=== PATIENT | male | born 1945 | race Caucasian/White ===

== ENCOUNTER 2021-12-10 10:51 | Outpatient (CLI) | payer MEDICARE, BC, SELFPAY ==
--- NOTE | 2021-12-10 12:14 | W.ANESCHARGE ---
Anesthesia Charges Start Date/Time Anesthesia Start Date: 12/10/21 Anesthesia Start Time: 11:38 Stop Date/Time Anesthesia Stop Date: 12/10/21 Anesthesia Stop Time: 12:12 Summary Emergency: No Extremes of Age: Over [id number] [id number]
--- NOTE | 2021-12-10 12:56 | W.ANESCHARGE ---
Anesthesia Charges Start Date/Time Anesthesia Start Date: 12/10/21 Anesthesia Start Time: 11:38 Stop Date/Time Anesthesia Stop Date: 12/10/21 Anesthesia Stop Time: 12:12 Summary Emergency: No
== END 2021-12-10 10:52 | disposition home or self-care (01) ==
LOC: OP CLINIC 10:51
PROVIDERS: PCP Family Medicine; Visit Provider Surgery
DX: K57.30 Diverticulosis of large intestine without perforation or abscess without bleeding (principal); Z09 Encounter for follow-up examination after completed treatment for conditions other than malignant neoplasm; Z98.0 Intestinal bypass and anastomosis status
CPT/HCPCS: 45385; 811; 88305; 99100; J2704

== ENCOUNTER 2022-11-18 09:54 | Outpatient (CLI) | payer MEDICARE, BC, SELFPAY | END 2022-11-18 09:55 | disposition home or self-care (01) | PROVIDERS: PCP Family Medicine; Visit Provider Family Medicine | DX: Z00.00 Encounter for general adult medical examination without abnormal findings (principal); E78.2 Mixed hyperlipidemia; I11.0 Hypertensive heart disease with heart failure; M10.9 Gout, unspecified; Z13.9 Encounter for screening, unspecified | CPT/HCPCS: 80048; 80061; 84550; 85025 ==

== ENCOUNTER 2023-07-11 14:31 | Outpatient (CLI) | payer MEDICARE, BC, SELFPAY ==
--- NOTE | 2023-07-11 14:45 | CRLHL7_ITS ---
For Patients: As a result of the Century Cures Act, medical imaging exams and procedure reports are released immediately into your electronic medical record. You may view this report before your referring provider. If you have questions, please contact your health care provider. Indication: Lumbar radiculopathy. Technique: Multisequence multiplanar MRI of the lumbar spine without contrast. Comparison: Correlated with lumbar spine radiographs dated 07/07/2023. Findings: Normal vertebral alignment, stature, and intrinsic marrow signal intensity. Multilevel disc desiccation and height loss most pronounced at L5-S1. The conus medullaris terminates normally at the L1-2 level. Multiple well-circumscribed renal parenchymal hyperintensities likely represent cysts. Evaluation of the individual levels demonstrates: T12-L1: No significant spinal canal or neural foraminal stenosis. L1-L2: Shallow symmetric disc bulge. Mild facet joint hypertrophy. No significant spinal canal or neural foraminal stenosis. L2-L3: Show a symmetric disc bulge. Mild facet joint hypertrophy. No significant spinal canal or neural foraminal stenosis. L3-L4: Symmetric disc bulge. Mild facet joint hypertrophy. No significant spinal canal or neural foraminal stenosis. L4-L5: Mild narrowing of the lateral recesses and mild bilateral neural foraminal narrowing resulting from facet joint hypertrophy and symmetric disc bulging. L5-S1: No significant spinal canal stenosis. Mild left and moderate right neural foraminal narrowing resulting from symmetric disc bulging and facet joint hypertrophy. Impression: 1. Normal alignment with multilevel intervertebral disc height loss most pronounced at L5-S1. 2. At L4-L5, mild narrowing of the lateral recesses and bilateral neural foramina. 3. At L5-S1, moderate right neural foraminal narrowing with questionable impingement of the exiting nerve root. Dictated by Shorty Elkins MD @ 07/12/2023 10:47:40 AM (Electronically Signed)
== END 2023-07-11 14:32 | disposition home or self-care (01) ==
LOC: MRI 14:32
PROVIDERS: PCP Family Medicine; Visit Provider Family Medicine
DX: M54.16 Radiculopathy, lumbar region (principal); M51.26 Other intervertebral disc displacement, lumbar region; M51.27 Other intervertebral disc displacement, lumbosacral region
CPT/HCPCS: 72148

== ENCOUNTER 2023-08-11 10:09 | Outpatient (CLI) | payer MEDICARE, BC, SELFPAY | END 2023-08-11 10:10 | disposition home or self-care (01) | LOC: FBOREF 10:09 | PROVIDERS: PCP Family Medicine; Visit Provider Family Medicine | DX: I10 Essential (primary) hypertension (principal) | CPT/HCPCS: 80048 ==

== ENCOUNTER 2023-09-02 15:18 | Outpatient (CLI) | payer MEDICARE, BC, SELFPAY | END 2023-09-02 15:19 | disposition home or self-care (01) | PROVIDERS: PCP Family Medicine; Visit Provider Family Medicine | DX: E11.9 Type 2 diabetes mellitus without complications (principal); I10 Essential (primary) hypertension; G47.62 Sleep related leg cramps | CPT/HCPCS: 80048; 83735 ==

== ENCOUNTER 2023-10-25 12:07 | Outpatient (CLI) | payer MEDICARE, BC, SELFPAY | END 2023-10-25 12:08 | disposition home or self-care (01) | LOC: AMB 10-29 05:13 | PROVIDERS: PCP Family Medicine; Visit Provider Student in an Organized Health Care Education/Training Program | DX: I95.9 Hypotension, unspecified (principal); R53.1 Weakness; R42 Dizziness and giddiness; K92.1 Melena | CPT/HCPCS: A0425; A0427 ==

== ENCOUNTER 2023-10-25 12:47 | Observation (INO) | payer MEDICARE, BC, SELFPAY ==
[2023-10-25] VITALS (13 sets, daily range): BP systolic 84–144; BP diastolic 57–90; PULSE 62–85; RESP 16–18; TEMP 36.3–36.4; O2SAT 92–100; BMI 30.1
--- NOTE | 2023-10-25 13:14 | ED_ITS ---
HPI - General Adult General Date Seen: 10/25/23 Chief complaint: Dizziness/Vertigo Stated complaint: low back pain,low blood pressure Time Seen by Provider: 10/25/23 12:55 Source: patient, RN notes reviewed, old records reviewed and other Mode of arrival: ambulatory Limitations: no limitations History of Present Illness HPI narrative: Patient is an 77-year-old sent here by EMS from urgent care for evaluation of dizziness. He notes a several month history, approximately 5 months, of low back pain when he is up and walking around as well as dizziness with standing. Starting yesterday, he says the dizziness has been worse, it does not seem to get better when he walks around for a little bit. He also notes to dark black stools since yesterday. He has not had significant abdominal pain recently, did have trouble after starting metformin with abdominal pain and discontinue that. He continues to complain of back pain when he is up and ambulatory but does not have any back pain when he is lying down. He has no chest pain or shortness of breath. He has felt lightheaded, says he was near syncopal yesterday. Related Data Home Medications Medication Instructions Recorded Confirmed nitroglycerin 0.4 mg sublingual 0.4 mg sublingual Q5M PRN 05/27/22 10/25/23 tablet gabapentin 300 mg capsule 300 mg PO DAILY 10/11/23 10/25/23 allopurinol 300 mg tablet 300 mg PO DAILY 10/25/23 10/25/23 amlodipine 5 mg tablet 5 mg PO DAILY 10/25/23 10/25/23 losartan 100 1 tab PO DAILY 10/25/23 10/25/23 mg-hydrochlorothiazide 25 mg tablet mirtazapine 30 mg tablet 30 mg PO HS 10/25/23 10/25/23 naproxen 500 mg tablet 500 mg PO BID PRN 10/25/23 10/25/23 Previous Rx's Medication Instructions Recorded zolpidem 10 mg tablet 10 mg PO QHS PRN insomnia #90 tabs 05/25/23 glimepiride 2 mg tablet 2 mg PO QAM #30 tabs 10/12/23 Test Strips #1 ea 10/17/23 blood-glucose meter #1 ea 10/17/23 lancets #100 ea 10/17/23 Allergies Allergy/AdvReac Type Severity Reaction Status Date / Time atorvastatin Allergy Intermediate Aches and Verified 10/25/23 15:15 pains lisinopril Allergy Intermediate Cough Verified 10/25/23 15:15 Review of Systems Status of ROS: Reports: 10 or more systems reviewed and unremarkable except as noted in History and below [facility] Medical History (Updated 10/25/23 @ 18:28 by Katerina Walters MD) Gout (11/22/11) ?M10.9 - Gout, unspecified (ICD-10) Generalized anxiety disorder ?F41.1 - Generalized anxiety disorder (ICD-10) Tubular adenoma of colon ?D12.6 - Benign neoplasm of colon, unspecified (ICD-10) Type 2 diabetes mellitus, without long-term current use of insulin ?E11.9 - Type 2 diabetes mellitus without complications (ICD-10) Insomnia ?G47.00 - Insomnia, unspecified (ICD-10) Mixed hyperlipidemia ?E78.2 - Mixed hyperlipidemia (ICD-10) Primary hypertension ?I10 - Essential (primary) hypertension (ICD-10) RLS (restless legs syndrome) ?G25.81 - Restless legs syndrome (ICD-10) History of renal calculi (2015) ?Z87.442 - Personal history of urinary calculi (ICD-10) History of myocardial infarction (1992) ?I25.2 - Old myocardial infarction (ICD-10) History of depression ?Z86.59 - Personal history of other mental and behavioral disorders (ICD-10) Surgical History History of right hemicolectomy ?Z90.49 - Acquired absence of other specified parts of digestive tract (ICD- 10) Status post appendectomy ?Z90.49 - Acquired absence of other specified parts of digestive tract (ICD- 10) History of tonsillectomy ?Z90.89 - Acquired absence of other organs (ICD-10) History of left inguinal hernia repair (04/16/97) ?Z98.890 - Other specified postprocedural states (ICD-10) ?Z87.19 - Personal history of other diseases of the digestive system (ICD-10) History of cholecystectomy (2011) ?Z90.49 - Acquired absence of other specified parts of digestive tract (ICD- 10) History of basal cell carcinoma (BCC) excision (05/2019) ?Z98.890 - Other specified postprocedural states (ICD-10) ?Z85.828 - Personal history of other malignant neoplasm of skin (ICD-10) Family History Son Testicular cancer Family/Other Type 1 diabetes mellitus Family/Other Type 1 diabetes mellitus Other Lung cancer Social History Narrative: , 4 kids, retired Non-smoker Social EtOH What is your current living situation?: I presently have a place to live Problems where you live: no known problems In the past 12 months, utilities in danger of being shut off: no In past 12 months, lack of transportation kept you from medical appts, meetings, work, or getting things needed for daily living: no In the past 12 mos, have been you worried that your food would run out before you had money to buy more?: never true In the past 12 mos, the food you bought just didn't last and you didn't have money to buy more?: never true Smoking Status: Never smoker How often do you have a drink containing alcohol: never How often do you have six or more drinks on one occasion: Never AUDIT-C Alcohol total score: 0 Non-prescribed substance use: denies use How often does anyone, including family, friends and others, physically hurt you : never How often does anyone, including family, friends and others, insult or talk down to you: never How often does anyone, including family, friends and others, threaten you with harm: never How often does anyone, including family, friends and others, scream or curse at you: never Little interest or pleasure in doing things: more than half the days Feeling down, depressed, or hopeless: more than half the days service: No Exam Narrative: Exam Narrative: Vital signs as noted above. In general, an alert, well-appearing patient. Head: Normocephalic, atraumatic. Eyes: Pupils are equal reactive. Extraocular movements are full. Conjunctivae are normal. ENT: Mucous membranes are moist. Throat is normal. Neck: Supple without lymphadenopathy. Heart: Regular rate and rhythm. No murmur or rub. Lungs: Clear bilaterally. No increased work of breathing, crackles or wheezes. Abdomen: Soft and nontender. No organomegaly. Rectal: Melanotic stool, nontender prostate, no obvious masses. Extremities: Well perfused. No edema. No calf tenderness. Pulses intact. Neurologic: Patient is alert and oriented to person and place. Speech is fluent. Face is symmetric. Moves all extremities equally. Affect: Normal. Skin: Warm and dry. Well perfused. Const: Vital Signs, click to edit/add: Vital Signs - 24 hr 10/25/23 12:53 10/25/23 12:57 10/25/23 13:01 Temperature 97.4 F L Pulse Rate 69 Pulse Rate [Pulse Oximeter] 67 Pulse Rate [orthos tatic lying] Pulse Rate [orthos tatic sitting] Pulse Rate [orthos tatic standing] Respiratory Rate 16 Blood Pressure 98/66 Blood Pressure [Ri ght Upper Arm] 114/80 Blood Pressure [or thostatic lying] Blood Pressure [or thostatic sitting] Blood Pressure [or thostatic standing ] Pulse Oximetry 96 95 [facility] 10/25/23 13:02 10/25/23 13:15 10/25/23 13:30 Temperature Pulse Rate 73 72 78 Pulse Rate [Pulse Oximeter] Pulse Rate [orthos tatic lying] Pulse Rate [orthos tatic sitting] Pulse Rate [orthos tatic standing] Respiratory Rate Blood Pressure Blood Pressure [Ri ght Upper Arm] Blood Pressure [or thostatic lying] Blood Pressure [or thostatic sitting] Blood Pressure [or thostatic standing ] Pulse Oximetry 93 94 96 [facility] 10/25/23 13:31 10/25/23 13:45 10/25/23 14:00 Temperature Pulse Rate 74 76 62 Pulse Rate [Pulse Oximeter] Pulse Rate [orthos tatic lying] Pulse Rate [orthos tatic sitting] Pulse Rate [orthos tatic standing] Respiratory Rate Blood Pressure 92/57 L Blood Pressure [Ri ght Upper Arm] Blood Pressure [or thostatic lying] Blood Pressure [or thostatic sitting] Blood Pressure [or thostatic standing ] Pulse Oximetry 96 99 98 [facility] 10/25/23 14:01 10/25/23 14:37 Temperature Pulse Rate 62 Pulse Rate [Pulse Oximeter] Pulse Rate [orthos tatic lying] 65 Pulse Rate [orthos tatic sitting] 81 Pulse Rate [orthos tatic standing] 85 Respiratory Rate Blood Pressure 84/61 L Blood Pressure [Ri t Upper Arm] Blood Pressure [or thostatic lying] 113/73 Blood Pressure [or thostatic sitting] 95/73 Blood Pressure [or thostatic standing ] 93/75 Pulse Oximetry 97 Oxygen Delivery Me thod Course Course ED Course: Patient had an IV established by paramedics, I gave him a total of a L of normal saline. His blood pressures did remain in the 80s to 90s, but looking through his records it looks like his blood pressures have been running low recently. He still is on 2 blood pressure medications. His stools clearly melanotic, I think GI blood loss is contributing to his dizziness. With regard to his back pain, this is chronic over the past number of months and unchanged. He does not have any back pain right now. I did look at his aorta with the ultrasound and did hear normal caliber. I am not concerned about aortic pathology. A type and screen was ordered. His hemoglobin came back at 10, recheck in 2 hours it was 9.3 after your saline. White count was normal at 7, platelets. Venous gas was unremarkable, metabolic panel was normal. Patient is not anticoagulated. BUN was elevated at 65, creatinine was 1.8. This may be a combination some prerenal azotemia, BUN may be elevated because of GI blood loss as well. Lactate was normal at 1.9, liver function panel is normal, troponin less than 0.1. BNP 32. TSH was normal 3.5. UA was negative. Fecal occult blood was positive. He went on to have CT scan of the abdomen, GI bleed protocol, this is read by radiology as follows:FINDINGS: ABDOMEN Liver: Normal hepatic attenuation. No suspicious focal hepatic lesion. No significant intrahepatic biliary ductal dilatation. Mild intrahepatic biliary ductal prominence is consistent with a reservoir effect status post cholecystectomy. Patent portal and hepatic veins. Gallbladder: Cholecystectomy. Normal common duct caliber. Pancreas: Diffuse fatty infiltration of the pancreas. No focal lesion. Normal duct caliber. No peripancreatic inflammatory changes. Spleen: Normal splenic attenuation. No suspicious focal lesion. Patent splenic artery and vein. Adrenal Glands: Symmetrical adrenal glands. No focal lesion of significance. Kidneys: 6 mm (series 12; image 93) distal right ureteral stone very close to the ureterovesical junction without significant upstream dilatation of the right upper urinary tract. 10 mm nonobstructing stone in the left renal pelvis. Multiple additional nonobstructing intrarenal collecting system stones. Bilateral uncomplicated renal cortical cysts. No suspicious focal lesion. Gastrointestinal tract: Postsurgical changes involving the distal ileum and proximal right colon (ileocolic anastomosis). Nondilated bowel. Extensive diverticulosis of the descending and sigmoid colon without associated infla mmatory changes. Normal mesentery. Vascular: Moderate aortoiliac atherosclerotic mural calcification. Abdominal aorta and its major proximal branches including the celiac, superior mesenteric, inferior mesenteric, renal, and bilateral common iliac arteries are patent. Accessory left lower pole renal artery. Inferior vena cava, portal and superior mesenteric veins are patent. Additional findings: No incidental adenopathy. No significant ascites, free fluid or pneumoperitoneum. PELVIS No bladder lesion is identified. No significant incidental findings related to the prostate and seminal vesicles. No abnormal free fluid. No incidental adenopathy. SKELETON AND BODY WALL No acute or suspicious incidental findings. Multilevel thoracolumbar spondylosis. 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 LOWER THORAX Severe multivessel atherosclerotic coronary artery calcification. Partially included lower thoracic wall, lungs, pleural spaces and mediastinum are otherwise without significant incidental findings. IMPRESSION: 1. No imaging findings to explain melena. No evidence of active extravasation. CT is insensitive for detection of mucosal lesions of the gastrointestinal tract. Consider Gastroenterology consultation for further evaluation (endoscopy). 2. Extensive diverticulosis of the descending and sigmoid colon without evidence of acute diverticulitis. 3. Ileocolic anastomosis. 4. Urolithiasis described above including a 6 mm distal right ureteral stone located close to the ureterovesical junction without significant upstream dilatation of the right upper urinary tract. 5. Incidental findings described in the body of the report. I have discussed all this with the patient. Interestingly, he does have a right ureteral stone, unclear how long this is been there and there is not significant hydronephrosis but I do wonder whether this has contributed to his back pain. This will need to be addressed but I think the more pressing issue is the GI bleed. He will be admitted to the hospital for further evaluation and observation. He received Protonix here in the ER. Vital Signs Vital signs: Initial Vital Signs Temperature 97.4 F L 10/25/23 12:53 Temperature Source Temporal Artery Scan 10/25/23 12:53 Pulse Rate 67 10/25/23 12:53 Respiratory Rate 16 10/25/23 12:53 Blood Pressure 114/80 10/25/23 12:53 Blood Pressure Mean 91 10/25/23 12:53 Blood Pressure Position Supine 10/25/23 12:53 Pulse Oximetry 96 10/25/23 12:53 Oxygen Delivery Method Room Air 10/25/23 12:53 Vital Signs Temperature 97.4 F L 10/25/23 12:53 Pulse Rate 67 10/25/23 12:53 Respiratory Rate 16 10/25/23 12:53 Blood Pressure 114/80 10/25/23 12:53 Pulse Oximetry 96 10/25/23 12:53 Oxygen Delivery Method Room Air 10/25/23 12:53 Temperature 97.4 F L 10/25/23 12:53 Pulse Rate 65 10/25/23 14:37 Respiratory Rate 16 10/25/23 17:52 Blood Pressure 113/73 10/25/23 14:37 Pulse Oximetry 98 10/25/23 17:52 Oxygen Delivery Method Room Air 10/25/23 17:52 Medications Administered Medications: Discontinued Medications Generic Name Dose Route Start Last Admin Trade Name Freq PRN Reason Stop Dose Admin Sodium Chloride 1,000 mls @ 1,000 mls/hr 10/25/23 13:00 10/25/23 14:13 0.9 % Sodium Chloride 1000 Ml IV 10/25/23 13:59 Infused .Q1H TIMOTEO Infusion Pantoprazole Sodium 40 mg 10/25/23 14:38 10/25/23 14:54 Pantoprazole Sodium 40 Mg Inj IVP 10/25/23 14:39 40 mg ONCE ONE Administration Medical Decision Making Lab Data Labs: Lab Results 10/25/23 10/25/23 10/25/23 Range/Units 13:08 13:08 13:08 WBC 7.02 (4.50-11.00) K/uL RBC 3.23 L (4.30-5.90) m/uL Hgb 10.0 L (13.5-17.5) gm/dL Hct 31.4 L (37.0-53.0) % MCV 97 (80-100) fL MCH 31 (26-34) pg MCHC 32 (32-36) gm/dL RDW Coeff of [place] 14.2 (11.5-15.5) % Plt Count 210 (140-440) K/uL Neut % (Auto) 74.7 H (42.0-72.0) % Lymph % (Auto) 13.0 L (20-44) % [place] % (Auto) 8.8 (0.0-11.0) % Eos % (Auto) 2.3 (0.0-7.0) % Baso % (Auto) 0.6 (0.0-3.0) % Neut # (Auto) 5.20 (1.7-7.0) K/uL Lymph # (Auto) 0.90 (0.90-2.90) K/uL [place] # (Auto) 0.60 (0.00-0.90) K/UL Eos # (Auto) 0.16 (0.00-0.50) K/uL Baso # (Auto) 0.04 (0.00-0.30) K/uL Abs Immat Gran (auto) 0.04 (0.00-0.30) K/uL Imm/Tot Granulo (auto) 0.6 % VBG pH 7.368 (7.32-7.43) VBG pCO2 45 (40-50) mmHG VBG pO2 < 30.1 (25-47) mmHG VBG HCO3 26 (21-28) mmol/L Sodium Cancelled 136 Potassium Cancelled 3.6 Chloride Cancelled Carbon Dioxide Anion Gap BUN Creatinine Estimated Creat Clear Estimated GFR Glucose Lactate (0.5-1.9) mmol/L Calcium Magnesium (1.5-2.6) mg/dL Total Bilirubin (0.1-1.5) mg/dL Direct Bilirubin (0.0-0.5) mg/dL AST (12-35) U/L ALT (4-50) U/L Alkaline Phosphatase (40-150) U/L Troponin I (0.01-0.04) ng/mL NT-Pro-B Natriuret Pep pg/mL Total Protein (6.0-8.3) g/dL Albumin (3.3-5.0) g/dL TSH (0.270-4.200) uIU/mL Urine Color (Yellow) Urine Appearance (Clear) Urine pH (5.0-8.5) Ur Specific [place] (1.000-1.030) Urine Protein (Negative) Urine Glucose (UA) (Negative) Urine Ketones (Negative) Urine Blood (Negative) Urine Nitrite (Negative) Urine Bilirubin (Negative) Urine Urobilinogen (0.2-1.0) Ur Leukocyte Esterase (Negative) Urine RBC (0-2) Urine WBC (0-5) Ur Squamous Epith Cells (None-Few) Urine Bacteria (None) Stool Occult Blood (Negative) Blood Type Antibody Screen 10/25/23 10/25/23 10/25/23 Range/Units 13:08 13:08 13:08 WBC (4.50-11.00) K/uL RBC (4.30-5.90) m/uL Hgb (13.5-17.5) gm/dL Hct (37.0-53.0) % MCV (80-100) fL MCH (26-34) pg MCHC (32-36) gm/dL RDW Coeff of Denia (11.5-15.5) % Plt Count (140-440) K/uL Neut % (Auto) (42.0-72.0) % Lymph % (Auto) (20-44) % [place] % (Auto) (0.0-11.0) % Eos % (Auto) (0.0-7.0) % Baso % (Auto) (0.0-3.0) % Neut # (Auto) (1.7-7.0) K/uL Lymph # (Auto) (0.90-2.90) K/uL [place] # (Auto) (0.00-0.90) K/UL Eos # (Auto) (0.00-0.50) K/uL Baso # (Auto) (0.00-0.30) K/uL Abs Immat Gran (auto) (0.00-0.30) K/uL Imm/Tot Granulo (auto) % VBG pH (7.32-7.43) VBG pCO2 (40-50) mmHG VBG pO2 (25-47) mmHG VBG HCO3 (21-28) mmol/L Sodium Potassium Chloride 103 Carbon Dioxide Cancelled 24 Anion Gap Cancelled 9 BUN Cancelled Creatinine Estimated Creat Clear Estimated GFR Glucose Lactate (0.5-1.9) mmol/L Calcium Magnesium (1.5-2.6) mg/dL Total Bilirubin (0.1-1.5) mg/dL Direct Bilirubin (0.0-0.5) mg/dL AST (12-35) U/L ALT (4-50) U/L Alkaline Phosphatase (40-150) U/L Troponin I (0.01-0.04) ng/mL NT-Pro-B Natriuret Pep pg/mL Total Protein (6.0-8.3) g/dL Albumin (3.3-5.0) g/dL TSH (0.270-4.200) uIU/mL Urine Color (Yellow) Urine Appearance (Clear) Urine pH (5.0-8.5) Ur Specific [place] (1.000-1.030) Urine Protein (Negative) Urine Glucose (UA) (Negative) Urine Ketones (Negative) Urine Blood (Negative) Urine Nitrite (Negative) Urine Bilirubin (Negative) Urine Urobilinogen (0.2-1.0) Ur Leukocyte Esterase (Negative) Urine RBC (0-2) Urine WBC (0-5) Ur Squamous Epith Cells (None-Few) Urine Bacteria (None) Stool Occult Blood (Negative) Blood Type Antibody Screen 10/25/23 10/25/23 10/25/23 Range/Units 13:08 13:08 13:08 WBC (4.50-11.00) K/uL RBC (4.30-5.90) m/uL Hgb (13.5-17.5) gm/dL Hct (37.0-53.0) % MCV (80-100) fL MCH (26-34) pg MCHC (32-36) gm/dL RDW Coeff of Denia (11.5-15.5) % Plt Count (140-440) K/uL Neut % (Auto) (42.0-72.0) % Lymph % (Auto) (20-44) % [place] % (Auto) (0.0-11.0) % Eos % (Auto) (0.0-7.0) % Baso % (Auto) (0.0-3.0) % Neut # (Auto) (1.7-7.0) K/uL Lymph # (Auto) (0.90-2.90) K/uL [place] # (Auto) (0.00-0.90) K/UL Eos # (Auto) (0.00-0.50) K/uL Baso # (Auto) (0.00-0.30) K/uL Abs Immat Gran (auto) (0.00-0.30) K/uL Imm/Tot Granulo (auto) % VBG pH (7.32-7.43) VBG pCO2 (40-50) mmHG VBG pO2 (25-47) mmHG VBG HCO3 (21-28) mmol/L Sodium Potassium Chloride Carbon Dioxide Anion Gap BUN 65 H Creatinine Cancelled 1.8 H Estimated Creat Clear Cancelled Estimated GFR Cancelled 38 Glucose Cancelled Lactate (0.5-1.9) mmol/L Calcium Magnesium (1.5-2.6) mg/dL Total Bilirubin (0.1-1.5) mg/dL Direct Bilirubin (0.0-0.5) mg/dL AST (12-35) U/L ALT (4-50) U/L Alkaline Phosphatase (40-150) U/L Troponin I (0.01-0.04) ng/mL NT-Pro-B Natriuret Pep pg/mL Total Protein (6.0-8.3) g/dL Albumin (3.3-5.0) g/dL TSH (0.270-4.200) uIU/mL Urine Color (Yellow) Urine Appearance (Clear) Urine pH (5.0-8.5) Ur Specific [place] (1.000-1.030) Urine Protein (Negative) Urine Glucose (UA) (Negative) Urine Ketones (Negative) Urine Blood (Negative) Urine Nitrite (Negative) Urine Bilirubin (Negative) Urine Urobilinogen (0.2-1.0) Ur Leukocyte Esterase (Negative) Urine RBC (0-2) Urine WBC (0-5) Ur Squamous Epith Cells (None-Few) Urine Bacteria (None) Stool Occult Blood (Negative) Blood Type Antibody Screen 10/25/23 10/25/23 10/25/23 Range/Units 13:08 13:08 13:12 WBC (4.50-11.00) K/uL RBC (4.30-5.90) m/uL Hgb (13.5-17.5) gm/dL Hct (37.0-53.0) % MCV (80-100) fL MCH (26-34) pg MCHC (32-36) gm/dL RDW Coeff of Denia (11.5-15.5) % Plt Count (140-440) K/uL Neut % (Auto) (42.0-72.0) % Lymph % (Auto) (20-44) % [place] % (Auto) (0.0-11.0) % Eos % (Auto) (0.0-7.0) % Baso % (Auto) (0.0-3.0) % Neut # (Auto) (1.7-7.0) K/uL Lymph # (Auto) (0.90-2.90) K/uL [place] # (Auto) (0.00-0.90) K/UL Eos # (Auto) (0.00-0.50) K/uL Baso # (Auto) (0.00-0.30) K/uL Abs Immat Gran (auto) (0.00-0.30) K/uL Imm/Tot Granulo (auto) % VBG pH (7.32-7.43) VBG pCO2 (40-50) mmHG VBG pO2 (25-47) mmHG VBG HCO3 (21-28) mmol/L Sodium Potassium Chloride Carbon Dioxide Anion Gap BUN Creatinine Estimated Creat Clear Estimated GFR Glucose 165 H Lactate 1.9 (0.5-1.9) mmol/L Calcium Cancelled 9.9 Magnesium 1.7 (1.5-2.6) mg/dL Total Bilirubin 0.8 (0.1-1.5) mg/dL Direct Bilirubin 0.4 (0.0-0.5) mg/dL AST 23 (12-35) U/L ALT 27 (4-50) U/L Alkaline Phosphatase 63 (40-150) U/L Troponin I (0.01-0.04) ng/mL NT-Pro-B Natriuret Pep 32 pg/mL Total Protein 6.9 (6.0-8.3) g/dL Albumin 4.0 (3.3-5.0) g/dL TSH 3.470 (0.270-4.200) uIU/mL Urine Color (Yellow) Urine Appearance (Clear) Urine pH (5.0-8.5) Ur Specific [place] (1.000-1.030) Urine Protein (Negative) Urine Glucose (UA) (Negative) Urine Ketones (Negative) Urine Blood (Negative) Urine Nitrite (Negative) Urine Bilirubin (Negative) Urine Urobilinogen (0.2-1.0) Ur Leukocyte Esterase (Negative) Urine RBC (0-2) Urine WBC (0-5) Ur Squamous Epith Cells (None-Few) Urine Bacteria (None) Stool Occult Blood Positive (Negative) Blood Type Antibody Screen 10/25/23 10/25/23 10/25/23 Range/Units 13:21 15:23 15:45 WBC (4.50-11.00) K/uL RBC (4.30-5.90) m/uL Hgb 9.3 L (13.5-17.5) gm/dL Hct (37.0-53.0) % MCV (80-100) fL MCH (26-34) pg MCHC (32-36) gm/dL RDW Coeff of Denia (11.5-15.5) % Plt Count (140-440) K/uL Neut % (Auto) (42.0-72.0) % Lymph % (Auto) (20-44) % [place] % (Auto) (0.0-11.0) % Eos % (Auto) (0.0-7.0) % Baso % (Auto) (0.0-3.0) % Neut # (Auto) (1.7-7.0) K/uL Lymph # (Auto) (0.90-2.90) K/uL [place] # (Auto) (0.00-0.90) K/UL Eos # (Auto) (0.00-0.50) K/uL Baso # (Auto) (0.00-0.30) K/uL Abs Immat Gran (auto) (0.00-0.30) K/uL Imm/Tot Granulo (auto) % VBG pH (7.32-7.43) VBG pCO2 (40-50) mmHG VBG pO2 (25-47) mmHG VBG HCO3 (21-28) mmol/L Sodium Potassium Chloride Carbon Dioxide Anion Gap BUN Creatinine Estimated Creat Clear Estimated GFR Glucose Lactate (0.5-1.9) mmol/L Calcium Magnesium (1.5-2.6) mg/dL Total Bilirubin (0.1-1.5) mg/dL Direct Bilirubin (0.0-0.5) mg/dL AST (12-35) U/L ALT (4-50) U/L Alkaline Phosphatase (40-150) U/L Troponin I < 0.01 L (0.01-0.04) ng/mL NT-Pro-B Natriuret Pep pg/mL Total Protein (6.0-8.3) g/dL Albumin (3.3-5.0) g/dL TSH (0.270-4.200) uIU/mL Urine Color Yellow (Yellow) Urine Appearance Clear (Clear) Urine pH 5.5 (5.0-8.5) Ur Specific [place] 1.010 (1.000-1.030) Urine Protein Negative (Negative) Urine Glucose (UA) Negative (Negative) Urine Ketones Negative (Negative) Urine Blood Negative (Negative) Urine Nitrite Negative (Negative) Urine Bilirubin Negative (Negative) Urine Urobilinogen 0.2 (0.2-1.0) Ur Leukocyte Esterase Negative (Negative) Urine RBC 0-2 (0-2) Urine WBC 0-2 (0-5) Ur Squamous Epith Cells Few (None-Few) Urine Bacteria None (None) Stool Occult Blood (Negative) Blood Type O Positive Antibody Screen NEGATIVE Discharge Plan Discharge Clinical Impression: Melena Patient Disposition: Admitted As Observation
[2023-10-25] MEDS: 0.9 % SODIUM CHLORIDE 1000 ml 1,000 ML IV (13:15)
[2023-10-25 13:20] LABS: HCO3 VBG 26 mmol/L (21-28); Lactate Sepsis w/Reflex* 1.9 mmol/L (0.5-1.9); PCO2 VBG 45 mmHG (40-50); PO2 VBG < 30.1 mmHG (25-47); pH VBG 7.368 (7.32-7.43)
[2023-10-25 13:22] LABS: Basophils Absolute Auto 0.04 K/uL (0.00-0.30); Basophils Percent Auto 0.6 % (0.0-3.0); Eosinophils Absolute Auto 0.16 K/uL (0.00-0.50); Eosinophils Percent Auto 2.3 % (0.0-7.0); Hematocrit 31.4 % (37.0-53.0); Immature Granulocytes Abs Auto 0.04 K/uL (0.00-0.30); Immature Granulocytes Pct Auto 0.6 %; Mean Corpuscular HGB Conc 32 gm/dL (32-36); Mean Corpuscular Hemoglobin 31 pg (26-34); Mean Corpuscular Volume 97 fL (80-100); Monocytes Percent Auto 8.8 % (0.0-11.0); Neutrophils Percent Auto 74.7 % (42.0-72.0); Platelet Count* 210 K/uL (140-440); RDW Coefficient of Variation % 14.2 % (11.5-15.5); Red Blood Count 3.23 m/uL (4.30-5.90); White Blood Count* 7.02 K/uL (4.50-11.00)
[2023-10-25 13:25] LABS: Slide Review Reflex No
[2023-10-25 13:30] LABS: Fecal Occult Blood* Positive (Negative)
[2023-10-25 13:40] LABS: Chloride* 103 mmol/L (96-114); Potassium* 3.6 mmol/L (3.6-5.1); Sodium* 136 mmol/L (135-149)
[2023-10-25 13:42] LABS: Anion Gap 9 mEq/L (7-15); Aspartate Amino Transferase* 23 U/L (12-35); Bilirubin Direct* 0.4 mg/dL (0.0-0.5); Bilirubin Total* 0.8 mg/dL (0.1-1.5); Blood Urea Nitrogen* 65 mg/dL (7-30); Carbon Dioxide* 24 mmol/L (20-32); Creatinine* 1.8 mg/dL (0.5-1.5); Estimated Glomerular Filt Rate 38 ml/min; Total Protein* 6.9 g/dL (6.0-8.3)
[2023-10-25 13:43] LABS: Alanine Aminotransferase* 27 U/L (4-50); Alkaline Phosphatase* 63 U/L (40-150); Calcium* 9.9 mg/dL (8.4-10.6); Glucose* 165 mg/dL (60-115); Magnesium* 1.7 mg/dL (1.5-2.6)
[2023-10-25 13:59] LABS: NT Pro B Type NatriureticPept* 32 pg/mL
[2023-10-25 14:03] LABS: Troponin I* < 0.01 ng/mL (0.01-0.04)
--- NOTE | 2023-10-25 14:39 | CT_ITS ---
Patient: LESLEY SANTIAGO Facility:?[facility] Patient ID:?[id number] Site Patient ID:?[id number]. Site :?[id number] Study:?CT-Abdomen/Pelvis Angio 95CC ISOVUE 370 GI BLEED PRO-10/25/2023 3:19:53 PM Ordering Physician:JACEK Final Report: INDICATION: DARK BLACK STOOL x 1 DAY, DIZZINESS, LOW BACK PAIN, ABD PAIN, LIGHTHEADED, NEAR SYNCOPE, MELANA. (Sic) COMPARISON: None available. TECHNIQUE: CT of the abdomen and pelvis prior to and following intravenous administration of 95 cc of Isovue 370 intravenous contrast. Postcontrast images were acquired in the arterial and portal venous phases. Please note that all CT scans at this facility use dose modulation, iterative reconstruction, and/or weight-based dosing when appropriate to reduce radiation dose to as low as reasonably achievable. FINDINGS: ABDOMEN Liver: Normal hepatic attenuation. No suspicious focal hepatic lesion. No significant intrahepatic biliary ductal dilatation. Mild intrahepatic biliary ductal prominence is consistent with a reservoir effect status post cholecystectomy. Patent portal and hepatic veins. Gallbladder: Cholecystectomy. Normal common duct caliber. Pancreas: Diffuse fatty infiltration of the pancreas. No focal lesion. Normal duct caliber. No peripancreatic inflammatory changes. Spleen: Normal splenic attenuation. No suspicious focal lesion. Patent splenic artery and vein. Adrenal Glands: Symmetrical adrenal glands. No focal lesion of significance. Kidneys: 6 mm (series 12; image 93) distal right ureteral stone very close to the ureterovesical junction without significant upstream dilatation of the right upper urinary tract. 10 mm nonobstructing stone in the left renal pelvis. Multiple additional nonobstructing intrarenal collecting system stones. Bilateral uncomplicated renal cortical cysts. No suspicious focal lesion. Gastrointestinal tract: Postsurgical changes involving the distal ileum and proximal right colon (ileocolic anastomosis). Nondilated bowel. Extensive diverticulosis of the descending and sigmoid colon without associated inflammatory changes. Normal mesentery. Vascular: Moderate aortoiliac atherosclerotic mural calcification. Abdominal aorta and its major proximal branches including the celiac, superior mesenteric, inferior mesenteric, renal, and bilateral common iliac arteries are patent. Accessory left lower pole renal artery. Inferior vena cava, portal and superior mesenteric veins are patent. Additional findings: No incidental adenopathy. No significant ascites, free fluid or pneumoperitoneum. PELVIS No bladder lesion is identified. No significant incidental findings related to the prostate and seminal vesicles. No abnormal free fluid. No incidental adenopathy. SKELETON AND BODY WALL No acute or suspicious incidental findings. Multilevel thoracolumbar spondylosis. 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 LOWER THORAX Severe multivessel atherosclerotic coronary artery calcification. Partially included lower thoracic wall, lungs, pleural spaces and mediastinum are otherwise without significant incidental findings. IMPRESSION: 1. No imaging findings to explain melena. No evidence of active extravasation. CT is insensitive for detection of mucosal lesions of the gastrointestinal tract. Consider Gastroenterology consultation for further evaluation (endoscopy). 2. Extensive diverticulosis of the descending and sigmoid colon without evidence of acute diverticulitis. 3. Ileocolic anastomosis. 4. Urolithiasis described above including a 6 mm distal right ureteral stone located close to the ureterovesical junction without significant upstream dilatation of the right upper urinary tract. 5. Incidental findings described in the body of the report. Please note that all CT scans at this facility use dose modulation, iterative reconstruction, and/or weight-based dosing when appropriate to reduce radiation dose to as low as reasonably achievable. Dictated by Chas Rondon MD @ 10/25/2023 3:42:51 PM Signed by:?Chas Rondon MD @10/25/2023 3:42:51 PM (Electronic Signature)
[2023-10-25] MEDS: PANTOPRAZOLE SODIUM 40 MG INJ IVP (14:54)
[2023-10-25 15:29] LABS: Hemoglobin* 9.3 gm/dL (13.5-17.5)
[2023-10-25 15:54] LABS: Appearance Urine Clear (Clear); Bilirubin Urine Negative (Negative); Blood Urine Negative (Negative); Color Urine Yellow (Yellow); Glucose Urine Negative (Negative); Ketones Urine Negative (Negative); Leukocyte Esterase Urine Negative (Negative); Nitrite Urine Negative (Negative); Protein Urine Negative (Negative); Urobilinogen Urine 0.2 (0.2-1.0); pH Urine 5.5 (5.0-8.5)
[2023-10-25 16:01] LABS: RBC Urine 0-2 (0-2); Squamous Epithelial Cell Urine Few (None-Few); WBC Urine 0-2 (0-5)
--- NOTE | 2023-10-25 16:13 | P.IMHP_ITS ---
Hospitalist- H&P: HPI History of Present Illness Date Seen: 10/25/23 Chief complaint: low back pain,low blood pressure Narrative: ADMISSION HISTORY AND PHYSICAL - HOSPITALIST Chief Complaint: Dizziness, back pain, melanotic stools HPI: Sajan is a 77 y/o white male with a history of hypertension, insomnia, distant coronary artery disease, who presented today to urgent care for acute dizziness and ongoing back pain. He has had back pain for several months. He has had a lumbar MRI. This shows a radiculopathy related to nerve impingement at the L4- L5 right nerve root. He has been taking some NSAIDs. He has been referred to the back clinic. Nothing has really made much of a difference. His back pain was associated with right hip pain. However that has gotten better with a corticosteroid injection. Yesterday a.m. he noticed the onset of acute weakness and dizziness. He had 2 melanotic stools. He waited until this morning to go to urgent care. He was sent to the ER for further evaluation He has a long history of hypertension requiring 4 medications. However recently he has been taking his home blood pressure and has noted it to be less than 100 systolic. He does note previously being at the dentist in having his blood pressure checked and was told his blood pressure was quite low in the high 80s. He reported this to his PCP, Dr. Ely, who held his metoprolol. However he continued his amlodipine, losartan/hydrochlorothiazide combination. In urgent care today he reported his back pain, low blood pressure and fatigue/dizziness. ER COURSE: mildly hypotensive; orthostatic. Received fluids, IV PPI and exam. +guiac on rectal exam. HBG 10 down from 15 baseline and after fluids, 9.3. CT of Abd and Pelvis (GI bleed study) was reassuring other than for a right sided 6mm UVJ stone, nonobstructing. Blood pressures initially were 80 systolic. He is mildly orthostatic. CODE STATUS: FULL CODE EMERGENCY CONTACT PLAN: Evelyn Ren? ?Rel to Pat? [phone]?Cell Phone? I've updated the PFSH, medications and allergies in the Expanse tabs. INVESTIGATIONS: LABS/MICRO/ECG/IMAGING CBC reflects a normal white blood cell count. Hemoglobin has been to 10.0 upon arrival to the ED and is down to 9.3. His baseline is 15.0. He has normal platelets. Blood gas and lactate, TSH and magnesium are all normal His creatinine has bumped a little from a baseline of 1.4 up to 1.8. His BUN has doubled from the low 30s to the mid 60s. Normal electrolytes, normal liver function. Glucose 165, A1c 8.[address] IMPRESSION: 1. No imaging findings to explain melena. No evidence of active extravasation. CT is insensitive for detection of mucosal lesions of the gastrointestinal tract. Consider Gastroenterology consultation for further evaluation (endo scopy). 2. Extensive diverticulosis of the descending and sigmoid colon without evidence of acute diverticulitis. 3. Ileocolic anastomosis. 4. Urolithiasis described above including a 6 mm distal right ureteral stone located close to the ureterovesical junction without significant upstream dilatation of the right upper urinary tract. 5. Incidental findings described in the body of the report. REVIEW OF SYSTEMS: 12-point ROS completed with patient and negative unless otherwise stated in HPI or below. PHYSICAL EXAM: CONSTITUTIONAL: Conversive, good historian. A/O. Knows setting and context. Well appearing. VITAL SIGNS: see record. HEENT: Normocephalic, atraumatic. PERRL, EOMI, conjunctivae pink, no scleral icterus. Ears and nose externally normal. Pharynx normal. NECK: No JVD. No carotid bruit, no thyromegaly, no adenopathy. CHEST: Clear to auscultation bilaterally HEART: S1 and S2 normal. No harsh murmurs. Edema minimal ABDOMEN: Soft. No guarding or tenderness. MUSCULOSKELETAL: No gross joint deformity or swelling. NEURO: Cranial nerves intact. Grossly intact. No asymmetric findings. SKIN: No rashes, petechiae, concerning changes PSYCHIATRIC: Euthymic. ADMIT TO MEDSURG: FLOOR CARE DVT: SCDs, ambulation GI: IV PPI Time spent: Today I spent 75 minutes seeing the patient, discussing the patient with ER staff, reviewing Expanse and EPIC notes/diagnostics, discussing the care plan with our care time that includes social work, PT/OT, pharmacy, RT, senior living and documenting my impressions and plan in the medical record. [facility] Medical History (Updated 10/25/23 @ 18:28 by Katerina Walters MD) Gout (11/22/11) ?M10.9 - Gout, unspecified (ICD-10) Generalized anxiety disorder ?F41.1 - Generalized anxiety disorder (ICD-10) Tubular adenoma of colon ?D12.6 - Benign neoplasm of colon, unspecified (ICD-10) Type 2 diabetes mellitus, without long-term current use of insulin ?E11.9 - Type 2 diabetes mellitus without complications (ICD-10) Insomnia ?G47.00 - Insomnia, unspecified (ICD-10) Mixed hyperlipidemia ?E78.2 - Mixed hyperlipidemia (ICD-10) Primary hypertension ?I10 - Essential (primary) hypertension (ICD-10) RLS (restless legs syndrome) ?G25.81 - Restless legs syndrome (ICD-10) History of renal calculi (2015) ?Z87.442 - Personal history of urinary calculi (ICD-10) History of myocardial infarction (1992) ?I25.2 - Old myocardial infarction (ICD-10) History of depression ?Z86.59 - Personal history of other mental and behavioral disorders (ICD-10) Surgical History History of right hemicolectomy ?Z90.49 - Acquired absence of other specified parts of digestive tract (ICD- 10) Status post appendectomy ?Z90.49 - Acquired absence of other specified parts of digestive tract (ICD- 10) History of tonsillectomy ?Z90.89 - Acquired absence of other organs (ICD-10) History of left inguinal hernia repair (04/16/97) ?Z98.890 - Other specified postprocedural states (ICD-10) ?Z87.19 - Personal history of other diseases of the digestive system (ICD-10) History of cholecystectomy (2011) ?Z90.49 - Acquired absence of other specified parts of digestive tract (ICD- 10) History of basal cell carcinoma (BCC) excision (05/2019) ?Z98.890 - Other specified postprocedural states (ICD-10) ?Z85.828 - Personal history of other malignant neoplasm of skin (ICD-10) Family History Son Testicular cancer Family/Other Type 1 diabetes mellitus Family/Other Type 1 diabetes mellitus Other Lung cancer Social History Narrative: , 4 kids, retired Non-smoker Social EtOH What is your current living situation?: I presently have a place to live Problems where you live: no known problems In the past 12 months, utilities in danger of being shut off: no In past 12 months, lack of transportation kept you from medical appts, meetings, work, or getting things needed for daily living: no In the past 12 mos, have been you worried that your food would run out before you had money to buy more?: never true In the past 12 mos, the food you bought just didn't last and you didn't have money to buy more?: never true Smoking Status: Never smoker How often do you have a drink containing alcohol: never How often do you have six or more drinks on one occasion: Never AUDIT-C Alcohol total score: 0 Non-prescribed substance use: denies use How often does anyone, including family, friends and others, physically hurt you : never How often does anyone, including family, friends and others, insult or talk down to you: never How often does anyone, including family, friends and others, threaten you with harm: never How often does anyone, including family, friends and others, scream or curse at you: never Little interest or pleasure in doing things: more than half the days Feeling down, depressed, or hopeless: more than half the days service: No Meds Home Medications and Allergies Home Medications Medication Instructions Recorded Confirmed Type nitroglycerin 0.4 mg sublingual 0.4 mg sublingual Q5M PRN 05/27/22 10/25/23 History tablet gabapentin 300 mg capsule 300 mg PO DAILY 10/11/23 10/25/23 History allopurinol 300 mg tablet 300 mg PO DAILY 10/25/23 10/25/23 History amlodipine 5 mg tablet 5 mg PO DAILY 10/25/23 10/25/23 History losartan 100 1 tab PO DAILY 10/25/23 10/25/23 History mg-hydrochlorothiazide 25 mg tablet mirtazapine 30 mg tablet 30 mg PO HS 10/25/23 10/25/23 History naproxen 500 mg tablet 500 mg PO BID PRN 10/25/23 10/25/23 History Allergies Allergy/AdvReac Type Severity Reaction Status Date / Time atorvastatin Allergy Intermediate Aches and Verified 10/25/23 15:15 pains lisinopril Allergy Intermediate Cough Verified 10/25/23 15:15 Exam Const: Vital Signs, click to edit/add: Vital Signs - 24 hr 10/25/23 12:53 10/25/23 13:01 10/25/23 13:02 Temperature 97.4 F L Pulse Rate 69 73 Pulse Rate [Pulse Oximeter] 67 Pulse Rate [orthos tatic lying] Pulse Rate [orthos tatic sitting] Pulse Rate [orthos tatic standing] Respiratory Rate 16 Blood Pressure 98/66 Blood Pressure [Ri ght Upper Arm] 114/80 Blood Pressure [or thostatic lying] Blood Pressure [or thostatic sitting] Blood Pressure [or thostatic standing ] Pulse Oximetry 96 96 93 [facility] 10/25/23 13:15 10/25/23 13:30 10/25/23 13:31 Temperature Pulse Rate 72 78 74 Pulse Rate [Pulse Oximeter] Pulse Rate [orthos tatic lying] Pulse Rate [orthos tatic sitting] Pulse Rate [orthos tatic standing] Respiratory Rate Blood Pressure 92/57 L Blood Pressure [Ri ght Upper Arm] Blood Pressure [or thostatic lying] Blood Pressure [or thostatic sitting] Blood Pressure [or thostatic standing ] Pulse Oximetry 94 96 96 [facility] 10/25/23 13:45 10/25/23 14:00 10/25/23 14:01 Temperature Pulse Rate 76 62 62 Pulse Rate [Pulse Oximeter] Pulse Rate [orthos tatic lying] Pulse Rate [orthos tatic sitting] Pulse Rate [orthos tatic standing] Respiratory Rate Blood Pressure 84/61 L Blood Pressure [Ri ght Upper Arm] Blood Pressure [or thostatic lying] Blood Pressure [or thostatic sitting] Blood Pressure [or thostatic standing ] Pulse Oximetry 99 98 97 Oxygen Delivery [facility] [facility] 10/25/23 14:37 Temperature Pulse Rate Pulse Rate [Pulse Oximeter] Pulse Rate [orthos tatic lying] 65 Pulse Rate [orthos tatic sitting] 81 Pulse Rate [orthos tatic standing] 85 Respiratory Rate Blood Pressure Blood Pressure [Ri ght Upper Arm] Blood Pressure [or thostatic lying] 113/73 Blood Pressure [or thostatic sitting] 95/73 Blood Pressure [or thostatic standing ] 93/75 Pulse Oximetry Oxygen Delivery [facility] Hospitalist - H&P: Result Labs Labs: Short CBC 10/25/23 10/25/23 Range/Units 13:08 15:23 WBC 7.02 (4.50-11.00) K/uL Hgb 10.0 L 9.3 L (13.5-17.5) gm/dL Hct 31.4 L (37.0-53.0) % Plt Count 210 (140-440) K/uL BMP 10/25/23 10/25/23 10/25/23 13:08 13:08 13:08 Sodium Cancelled 136 Potassium Cancelled 3.6 Chloride Cancelled Carbon Dioxide BUN Creatinine Glucose Calcium 10/25/23 10/25/23 10/25/23 13:08 13:08 13:08 Sodium Potassium Chloride 103 Carbon Dioxide Cancelled 24 BUN Cancelled 65 H Creatinine Cancelled Glucose Calcium 10/25/23 10/25/23 10/25/23 13:08 13:08 13:08 Sodium Potassium Chloride Carbon Dioxide BUN Creatinine 1.8 H Glucose Cancelled 165 H Calcium Cancelled 9.9 Cardiac Enzymes 10/25/23 Range/Units 13:21 Troponin I < 0.01 L (0.01-0.04) ng/mL Liver Function 10/25/23 Range/Units 13:08 Total Bilirubin 0.8 (0.1-1.5) mg/dL Direct Bilirubin 0.4 (0.0-0.5) mg/dL AST 23 (12-35) U/L ALT 27 (4-50) U/L Alkaline Phosphatase 63 (40-150) U/L Albumin 4.0 (3.3-5.0) g/dL Urine 10/25/23 Range/Units 15:45 Urine Color Yellow (Yellow) Urine Appearance Clear (Clear) Urine pH 5.5 (5.0-8.5) Ur Specific [place] 1.010 (1.000-1.030) Urine Protein Negative (Negative) Urine Glucose (UA) Negative (Negative) Assessment and Plan Assessment and plan (1) Melena: Problem comment: 2 episodes 10/23, nothing reported 10/24 (as of 1829) EGD ordered IV PPI clears, NPO at midnight for possible EGD Status: Acute (2) UGI bleed: Problem comment: NSAID use for back pain; vs diverticular bleed. reviewed CT study follow Status: Acute (3) ABLA (acute blood loss anemia): Problem comment: trend hgb q6h -no blood ordered as of yet Status: Acute (4) YOSEF (acute kidney injury): Problem comment: pre-renal; profusion related. fluid bolus. trend. Status: Acute (5) Urolithiasis: Problem comment: right sided, 6 mm, nonobstructive. no RBCs in urine. outpatient urology to follow Status: Acute (6) Primary hypertension: Problem comment: losartan 100/HCTZ 25, amlodipine 5 previous metoprol dose on hold with recent low blood pressure findings holding all home anti-hypertensives. Status: Acute (7) Type 2 diabetes mellitus, without long-term current use of insulin: Problem comment: A1C 8.1 (10/27), previously on metformin (not tolerated); on glimepiride. -accuchecks Status: Acute (8) Insomnia: Problem comment: chronic ambien use mirtazapine Status: Acute (9) Lumbar radiculopathy: Problem comment: -gabapentin 300 up to TID Lumbar MRI 07/30 -L5-S1, moderate right neural foraminal narrowing with questionable impingement of the exiting right nerve root. Status: Acute (10) Coronary artery disease: Problem comment: Distant history. Nearly 30 years ago he had angioplasty for a singular lesion. No recent cardiology events workup. Status: Acute
[2023-10-25] MEDS: 0.9 % SODIUM CHLORIDE 1000 ml 1,000 ML 125 ML IV (18:58)
[2023-10-25 21:05] LABS: Hemoglobin* 9.4 gm/dL (13.5-17.5)
[2023-10-25] MEDS: ZOLPIDEM 5 MG TABLET 10 MG PO (22:02)
[2023-10-25] MEDS: MIRTAZAPINE 15 MG TABLET 30 MG PO (22:02)
--- NOTE | 2023-10-25 23:58 | PC.NURSE ---
Pt moving independently without issues. Denies dizziness or lightheadedness with position changes and last bp 144 systolically. Pt c/o increased low back discomfort while standing at the sink to brush his teeth and states he feels relief with laying on the bed. Declined Tylenol, stated it doesn't do anything for me. Declined Oxycodone, stating I don't wanna get into that stuff. Declined ice pack. Pt had one moderate formed stool, very dark in color with stephen red streaks diluting into the toilet water and BM had distinct odor. Tolerating clear liquids and will be NPO at midnight.
[2023-10-26] VITALS (7 sets, daily range): BP systolic 98–126; BP diastolic 57–90; PULSE 66–93; RESP 15–16; TEMP 36.4–36.6; O2SAT 93–98
[2023-10-26] MEDS: 0.9 % SODIUM CHLORIDE 1000 ml 1,000 ML 125 ML IV ×2 (01:35→09:46)
[2023-10-26 06:20] LABS: Basophils Absolute Auto 0.03 K/uL (0.00-0.30); Basophils Percent Auto 0.6 % (0.0-3.0); Eosinophils Absolute Auto 0.19 K/uL (0.00-0.50); Eosinophils Percent Auto 3.8 % (0.0-7.0); Hematocrit 28.5 % (37.0-53.0); Hemoglobin* 9.1 gm/dL (13.5-17.5); Immature Granulocytes Abs Auto 0.02 K/uL (0.00-0.30); Immature Granulocytes Pct Auto 0.4 %; Lymphocytes Percent Auto 16.6 % (20-44); Mean Corpuscular HGB Conc 32 gm/dL (32-36); Mean Corpuscular Hemoglobin 31 pg (26-34); Mean Corpuscular Volume 98 fL (80-100); Monocytes Percent Auto 9.3 % (0.0-11.0); Neutrophils Percent Auto 69.3 % (42.0-72.0); Platelet Count* 181 K/uL (140-440); RDW Coefficient of Variation % 14.3 % (11.5-15.5); Red Blood Count 2.92 m/uL (4.30-5.90); White Blood Count* 5.05 K/uL (4.50-11.00)
[2023-10-26 06:32] LABS: Albumin* 3.7 g/dL (3.3-5.0); Slide Review Reflex No
[2023-10-26 06:33] LABS: Chloride* 110 mmol/L (96-114); Potassium* 4.1 mmol/L (3.6-5.1); Sodium* 139 mmol/L (135-149)
[2023-10-26 06:35] LABS: Anion Gap 6 mEq/L (7-15); Aspartate Amino Transferase* 26 U/L (12-35); Carbon Dioxide* 23 mmol/L (20-32); Creatinine* 1.5 mg/dL (0.5-1.5); Est. Creatinine Clearance* 47.95; Estimated Glomerular Filt Rate 48 ml/min; Prothrombin Time 13.8 Seconds; Total Protein* 6.5 g/dL (6.0-8.3)
[2023-10-26 06:36] LABS: Alanine Aminotransferase* 26 U/L (4-50); Alkaline Phosphatase* 59 U/L (40-150); Blood Urea Nitrogen* 47 mg/dL (7-30); Calcium* 9.1 mg/dL (8.4-10.6); Glucose* 109 mg/dL (60-115)
--- NOTE | 2023-10-26 07:03 | PC.NURSE ---
Pt is alert and oriented x3. Afebrile. Pt denies SOB, chest pain, N/V, and pain. Pt is up ad pema, tolerating an NPO diet since 0000, and voiding. Pt had no bm overnight. Pt slept intermittently throughout night. ?
[2023-10-26 07:23] LABS: Iron* 74 ug/dL (49-181)
[2023-10-26 07:32] LABS: Percent Iron Saturation 25 % (20-50); Total Iron Binding Capacity 299 ug/dL (261-462)
[2023-10-26] MEDS: PANTOPRAZOLE SODIUM 40 MG INJ IVP (08:43)
--- NOTE | 2023-10-26 12:21 | W.ANESCHARGE ---
Anesthesia Charges Start Date/Time Anesthesia Start Date: 10/26/23 Anesthesia Start Time: 12:05 Stop Date/Time Anesthesia Stop Date: 10/26/23 Anesthesia Stop Time: 12:25 Summary Emergency: MDA
--- NOTE | 2023-10-26 12:29 | W.ANESCHARGE ---
Anesthesia Charges Start Date/Time Anesthesia Start Date: 10/26/23 Anesthesia Start Time: 12:05 Stop Date/Time Anesthesia Stop Date: 10/26/23 Anesthesia Stop Time: 12:25 Summary Emergency: OFFICE RECEPTIONIST
[2023-10-26 13:08] LABS: Hemoglobin* 9.4 gm/dL (13.5-17.5)
--- NOTE | 2023-10-26 13:27 | P.IMPN_ITS ---
Progress Note: A&P Assessment and plan (1) Melena: Problem details: - 2 episodes 10/23, another episode 10/25 am - EGD reassuring, likely diverticular bleed - continue PPI - follow hemoglobin Status: Acute (2) UGI bleed: Problem details: NSAID use for back pain; vs diverticular bleed. reviewed CT study follow Status: Acute (3) ABLA (acute blood loss anemia): Problem details: - trend hgb q6h - consider transfusing if hemoglobin less than 8 Status: Acute (4) YOSEF (acute kidney injury): Problem details: - pre-renal; profusion related, fluid bolus, trend - improved on 10/25 Status: Acute (5) Urolithiasis: Problem details: - right sided, 6 mm, nonobstructive. no RBCs in urine. - outpatient urology to follow Status: Acute (6) Primary hypertension: Problem details: - losartan 100/HCTZ 25, amlodipine 5, Metoprolol - holding all BP medications Status: Acute (7) Type 2 diabetes mellitus, without long-term current use of insulin: Problem details: - A1C 8.1 (10/27), previously on metformin (intolerant of this as an outpatient); on glimepiride. - accuchecks Status: Acute (8) Insomnia: Problem details: - chronic ambien use - mirtazapine Status: Acute (9) Lumbar radiculopathy: Problem details: - R sided, Lumbar MRI 07/30: L5-S1, moderate right neural foraminal narrowing with questionable impingement of the exiting right nerve root - Gabapentin 300 up to TID, outpatient f/u Status: Acute (10) Coronary artery disease: Problem details: - remotely; nearly 30 years ago he had angioplasty for a singular lesion. No recent cardiology events workup. Status: Acute Plan - per above, continue serial Hgb - updated at bedside, questions answered Subjective Date Seen: 10/26/23 Interval history: Rasta was admitted to the hospital yesterday after presenting with dizziness and found to have anemia and melena, as well as hypotension. He had an EGD today with general surgery, no acute bleeding found, biopsies taken and pending. Notable history of diverticulosis, suspect diverticular bleed the source of symptoms at this time. Patient feels better today, hemoglobin stable at 9.4. Blood pressure 120s over 90s, holding home blood pressure medications. He did have another melanotic stool this morning. Exam Narrative: Exam Narrative: GEN: Alert and oriented, sitting comfortably in bed HEENT: EOMIs bilaterally, no scleral icterus CV: RRR, No concerning murmurs R: LCTA bilaterally without concerning wheezing, air movement adequate Ab: Soft, tolerates palpation Ext: wwp, no concerning edema Skin: No concerning skin lesions or rashes on exposed skin Neuro: Nonfocal Psych: Appropriate Const: Vital Signs, click to edit/add: Vital Signs - 24 hr 10/25/23 13:30 10/25/23 13:31 10/25/23 13:45 Temperature Pulse Rate 78 74 76 Pulse Rate [Pulse Oximeter] Pulse Rate [orthos tatic lying] Pulse Rate [orthos tatic sitting] Pulse Rate [orthos tatic standing] Respiratory Rate Blood Pressure 92/57 L Blood Pressure [Ri ght Arm] Blood Pressure [or thostatic lying] Blood Pressure [or thostatic sitting] Blood Pressure [or thostatic standing ] Pulse Oximetry 96 96 99 Oxygen Delivery Me thod 10/25/23 14:00 10/25/23 14:01 10/25/23 14:37 Temperature Pulse Rate 62 62 Pulse Rate [Pulse Oximeter] Pulse Rate [orthos tatic lying] 65 Pulse Rate [orthos tatic sitting] 81 Pulse Rate [orthos tatic standing] 85 Respiratory Rate Blood Pressure 84/61 L Blood Pressure [Ri ght Arm] Blood Pressure [or thostatic lying] 113/73 Blood Pressure [or thostatic sitting] 95/73 Blood Pressure [or thostatic standing ] 93/75 Pulse Oximetry 98 97 Oxygen Delivery Me thod 10/25/23 17:52 10/25/23 17:52 10/25/23 17:52 Temperature 97.5 F L 97.5 F L Pulse Rate Pulse Rate [Pulse Oximeter] 84 84 Pulse Rate [orthos tatic lying] Pulse Rate [orthos tatic sitting] Pulse Rate [orthos tatic standing] Respiratory Rate 16 18 18 Blood Pressure Blood Pressure [Ri ght Arm] 144/90 H 144/90 H Blood Pressure [or thostatic lying] Blood Pressure [or thostatic sitting] Blood Pressure [or thostatic standing ] Pulse Oximetry 98 92 92 Oxygen Delivery Me thod Room Air Room Air Room Air 10/25/23 17:52 10/25/23 23:36 10/25/23 23:36 Temperature 97.4 F L Pulse Rate Pulse Rate [Pulse Oximeter] 62 Pulse Rate [orthos tatic lying] Pulse Rate [orthos tatic sitting] Pulse Rate [orthos tatic standing] Respiratory Rate 18 16 Blood Pressure Blood Pressure [Ri ght Arm] 108/61 Blood Pressure [or thostatic lying] Blood Pressure [or thostatic sitting] Blood Pressure [or thostatic standing ] Pulse Oximetry 100 94 94 Oxygen Delivery Nc thod Room Air Room Air 10/25/23 23:36 10/26/23 01:35 10/26/23 07:00 Temperature 97.5 F L Pulse Rate Pulse Rate [Pulse Oximeter] 62 66 Pulse Rate [orthos tatic lying] Pulse Rate [orthos tatic sitting] Pulse Rate [orthos tatic standing] Respiratory Rate 16 16 Blood Pressure Blood Pressure [Ri ght Arm] 108/76 Blood Pressure [or thostatic lying] Blood Pressure [or thostatic sitting] Blood Pressure [or thostatic standing ] Pulse Oximetry 96 97 Oxygen Delivery Nc thod Room Air 10/26/23 07:00 10/26/23 09:08 10/26/23 11:00 Temperature 97.7 F 97.7 F Pulse Rate 82 Pulse Rate [Pulse Oximeter] 74 68 Pulse Rate [orthos tatic lying] Pulse Rate [orthos tatic sitting] Pulse Rate [orthos tatic standing] Respiratory Rate 16 15 Blood Pressure Blood Pressure [Ri ght Arm] 124/86 126/90 H Blood Pressure [or thostatic lying] Blood Pressure [or thostatic sitting] Blood Pressure [or thostatic standing ] Pulse Oximetry 97 98 Oxygen Delivery Nc thod Room Air Room Air Labs Labs: Laboratory Results - last 24 hr 10/25/23 10/25/23 10/25/23 13:08 13:12 13:21 WBC RBC Hgb Hct MCV MCH MCHC RDW Coeff of [place] Plt Count Neut % (Auto) Lymph % (Auto) [place] % (Auto) Eos % (Auto) Baso % (Auto) Neut # (Auto) Lymph # (Auto) [place] # (Auto) Eos # (Auto) Baso # (Auto) Abs Immat Gran (auto) Imm/Tot Granulo (auto) INR Sodium 136 Potassium 3.6 Chloride 103 Carbon Dioxide 24 Anion Gap 9 BUN 65 H Creatinine 1.8 H Estimated Creat Clear Estimated GFR 38 Glucose 165 H Calcium 9.9 Magnesium 1.7 Iron TIBC % Saturation Total Bilirubin 0.8 Direct Bilirubin 0.4 AST 23 ALT 27 Alkaline Phosphatase 63 Troponin I < 0.01 L NT-Pro-B Natriuret Pep 32 Total Protein 6.9 Albumin 4.0 TSH 3.470 Urine Color Urine Appearance Urine pH Ur Specific [place] Urine Protein Urine Glucose (UA) Urine Ketones Urine Blood Urine Nitrite Urine Bilirubin Urine Urobilinogen Ur Leukocyte Esterase Urine RBC Urine WBC Ur Squamous Epith Cells Urine Bacteria Stool Occult Blood Positive Blood Type O Positive Antibody Screen NEGATIVE 10/25/23 10/25/23 10/25/23 15:23 15:45 21:00 WBC RBC Hgb 9.3 L 9.4 L Hct MCV MCH MCHC RDW Coeff of [place] Plt Count Neut % (Auto) Lymph % (Auto) [place] % (Auto) Eos % (Auto) Baso % (Auto) Neut # (Auto) Lymph # (Auto) [place] # (Auto) Eos # (Auto) Baso # (Auto) Abs Immat Gran (auto) Imm/Tot Granulo (auto) INR Sodium Potassium Chloride Carbon Dioxide Anion Gap BUN Creatinine Estimated Creat Clear Estimated GFR Glucose Calcium Magnesium Iron TIBC % Saturation Total Bilirubin Direct Bilirubin AST ALT Alkaline Phosphatase Troponin I NT-Pro-B Natriuret Pep Total Protein Albumin TSH Urine Color Yellow Urine Appearance Clear Urine pH 5.5 Ur Specific [place] 1.010 Urine Protein Negative Urine Glucose (UA) Negative Urine Ketones Negative Urine Blood Negative Urine Nitrite Negative Urine Bilirubin Negative Urine Urobilinogen 0.2 Ur Leukocyte Esterase Negative Urine RBC 0-2 Urine WBC 0-2 Ur Squamous Epith Cells Few Urine Bacteria None Stool Occult Blood Blood Type Antibody Screen 10/26/23 10/26/23 06:01 13:01 WBC 5.05 RBC 2.92 L Hgb 9.1 L 9.4 L Hct 28.5 L MCV 98 MCH 31 MCHC 32 RDW Coeff of [place] 14.3 Plt Count 181 Neut % (Auto) 69.3 Lymph % (Auto) 16.6 L [place] % (Auto) 9.3 Eos % (Auto) 3.8 Baso % (Auto) 0.6 Neut # (Auto) 3.50 Lymph # (Auto) 0.80 L [place] # (Auto) 0.50 Eos # (Auto) 0.19 Baso # (Auto) 0.03 Abs Immat Gran (auto) 0.02 Imm/Tot Granulo (auto) 0.4 INR 1.00 Sodium 139 Potassium 4.1 Chloride 110 Carbon Dioxide 23 Anion Gap 6 L BUN 47 H Creatinine 1.5 Estimated Creat Clear 47.95 Estimated GFR 48 Glucose 109 Calcium 9.1 Magnesium Iron 74 TIBC 299 % Saturation 25 Total Bilirubin 1.0 Direct Bilirubin AST 26 ALT 26 Alkaline Phosphatase 59 Troponin I NT-Pro-B Natriuret Pep Total Protein 6.5 Albumin 3.7 TSH Urine Color Urine Appearance Urine pH Ur Specific [place] Urine Protein Urine Glucose (UA) Urine Ketones Urine Blood Urine Nitrite Urine Bilirubin Urine Urobilinogen Ur Leukocyte Esterase Urine RBC Urine WBC Ur Squamous Epith Cells Urine Bacteria Stool Occult Blood Blood Type Antibody Screen
--- NOTE | 2023-10-26 14:57 | PC.NURSE ---
PT was NPO this morning prior to EGD. EGD completed and PT resumed regular diet. Black stool x1. Hgb 9.1 and 9.4, will be rechecked at 2100.
--- NOTE | 2023-10-26 19:45 | PC.NURSE ---
(Shift 15-19) Pt alert and oriented. Pt had no complaints of pain. Pt up independently in room and hallways. Pt walked in halls x 2 during shift.
[2023-10-26] MEDS: MIRTAZAPINE 15 MG TABLET 30 MG PO (20:31)
[2023-10-26] MEDS: SODIUM CHLORIDE 0.9 % (FLUSH) 10 ML SYRINGE 5 ML IVF (20:32)
[2023-10-26] MEDS: ZOLPIDEM 5 MG TABLET 10 MG PO (20:37)
[2023-10-26 21:53] LABS: Hemoglobin* 9.5 gm/dL (13.5-17.5)
[2023-10-27 04:25] VITALS: BP 121/71; PULSE 82; RESP 16; TEMP 36.4; O2SAT 96
[2023-10-27 06:55] LABS: Basophils Absolute Auto 0.04 K/uL (0.00-0.30); Basophils Percent Auto 0.6 % (0.0-3.0); Eosinophils Absolute Auto 0.15 K/uL (0.00-0.50); Eosinophils Percent Auto 2.3 % (0.0-7.0); Hematocrit 30.3 % (37.0-53.0); Hemoglobin* 9.6 gm/dL (13.5-17.5); Immature Granulocytes Abs Auto 0.03 K/uL (0.00-0.30); Immature Granulocytes Pct Auto 0.5 %; Lymphocytes Percent Auto 12.4 % (20-44); Mean Corpuscular HGB Conc 32 gm/dL (32-36); Mean Corpuscular Hemoglobin 31 pg (26-34); Mean Corpuscular Volume 98 fL (80-100); Monocytes Percent Auto 7.5 % (0.0-11.0); Neutrophils Percent Auto 76.7 % (42.0-72.0); Platelet Count* 196 K/uL (140-440); RDW Coefficient of Variation % 14.1 % (11.5-15.5); Red Blood Count 3.08 m/uL (4.30-5.90); White Blood Count* 6.44 K/uL (4.50-11.00)
[2023-10-27 07:05] LABS: Albumin* 4.1 g/dL (3.3-5.0); Chloride* 110 mmol/L (96-114); Sodium* 140 mmol/L (135-149)
[2023-10-27 07:08] LABS: Alanine Aminotransferase* 28 U/L (4-50); Alkaline Phosphatase* 70 U/L (40-150); Anion Gap 4 mEq/L (7-15); Aspartate Amino Transferase* 25 U/L (12-35); Bilirubin Total* 0.7 mg/dL (0.1-1.5); Blood Urea Nitrogen* 37 mg/dL (7-30); Carbon Dioxide* 26 mmol/L (20-32); Creatinine* 1.5 mg/dL (0.5-1.5); Est. Creatinine Clearance* 47.95; Estimated Glomerular Filt Rate 48 ml/min; Glucose* 127 mg/dL (60-115); Total Protein* 7.2 g/dL (6.0-8.3)
[2023-10-27 07:09] LABS: Calcium* 9.4 mg/dL (8.4-10.6)
[2023-10-27 07:10] LABS: Slide Review Reflex No
--- NOTE | 2023-10-27 07:46 | PC.NURSE ---
Pt is alert and oriented x3. Afebrile. Pt denies SOB, chest pain, N/V, and pain. Pt is up ad pema, tolerating a regular diet, and voiding.? Pt slept intermittently throughout night. ?
[2023-10-27] MEDS: PANTOPRAZOLE SODIUM 40 MG INJ IVP (09:36)
[2023-10-27] MEDS: SODIUM CHLORIDE 0.9 % (FLUSH) 10 ML SYRINGE 5 ML IVF (09:36)
[2023-10-27 09:59] VITALS: BP 136/84; PULSE 70; RESP 16; O2SAT 98
--- NOTE | 2023-10-27 14:14 | P.DS_ITS ---
DS: Providers Provider Date Seen: 10/27/23 Date of admission: 10/25/23 16:53 Primary care physician: David Ely MD Admitting Clinician: Katerina Walters MD Attending Physician on discharge: Tamara Alfaro MD Date of Discharge: 10/27/23 DS: Diagnosis Discharge Diagnosis (1) Melena: Status: Acute Problem details: - 2 episodes 10/23, another episode 10/25 am - EGD reassuring, possibly small bowel or diverticular bleed - Hgb stable during stay (10 --> 9.6 on discharge) (2) ABLA (acute blood loss anemia): Status: Acute (3) Type 2 diabetes mellitus, without long-term current use of insulin: Status: Acute Problem details: - A1C 8.1 (10/27), previously on metformin (intolerant of this as an outpatient - caused severe constipation just prior to admission); on glimepiride - Accuchecks (4) Lumbar radiculopathy: Status: Acute Problem details: - R sided, Lumbar MRI 07/30: L5-S1, moderate right neural foraminal narrowing with questionable impingement of the exiting right nerve root - Gabapentin 300 up to TID for symptoms, holding NSAIDs - patient requesting d/c appt with Dr. Dunbar (5) YOSEF (acute kidney injury): Status: Acute Problem details: - pre-renal; profusion related, fluid bolus, trend - improved on 10/25, back to baseline creatinine of 1.5 on discharge (6) Urolithiasis: Status: Acute Problem details: - right sided, 6 mm, nonobstructive, no RBCs in urine, incidental finding on admission CT - outpatient urology to follow (7) Primary hypertension: Status: Acute Problem details: - losartan 100/HCTZ 25, amlodipine 5, Metoprolol - holding all BP medications during stay and upon discharge DS: Summary Hospital Course Hospital Course: Rasta presented to the hospital on 10/25/2023 with dizziness and melena, found to have a new anemia (10, previous Hgb of 15) and hypotension. BP medications and NSAIDs were held during stay, EGD performed without any acute abnormalities noted. Melena improved, tolerating po intake, Hgb remained stable (9.6 on day of discharge) and patient requesting discharge home. Followup recommendations for PCP: - f/u repeat CBC at appt - f/u Blood Pressure (all medications held at discharge given lower BPs during stay, discharge BP 136/84) - Urology appt for incidentally noted renal stone - consider f/u colonoscopy in 6-8 weeks, pending clinical course Status at Discharge Functional status at discharge: independent ambulation Overall status at discharge: patient is progressing back to baseline Time Spent with Patient Time attestation: Total time spent providing and/or coordinating discharge services: Time spent: Greater than 30 minutes Specific discharge activities: Family updates, medication reconciliation Exam Narrative: Exam Narrative: GEN: Alert and oriented, sitting comfortably in bedside chair HEENT: EOMIs bilaterally, no scleral icterus CV: RRR, No concerning murmurs R: LCTA bilaterally without concerning wheezing Ab: Soft and nontender, normal bowel sounds Ext: wwp, no concerning edema Skin: No concerning skin lesions or rashes on exposed skin Neuro: Nonfocal Psych: Appropriate Const: Vital Signs, click to edit/add: Vital Signs - 24 hr 10/26/23 15:51 10/26/23 15:51 10/26/23 20:44 Temperature 97.5 F L Pulse Rate [Pulse Oximeter] 83 93 Respiratory Rate 16 16 Blood Pressure [Ri ght Arm] 115/73 120/80 Pulse Oximetry 94 94 96 Oxygen Delivery Me thod Room Air Room Air 10/26/23 23:00 10/27/23 04:25 10/27/23 09:59 Temperature 97.8 F 97.5 F L Pulse Rate [Pulse Oximeter] 82 82 70 Respiratory Rate 16 16 16 Blood Pressure [Ri ght Arm] 98/57 L 121/71 136/84 Pulse Oximetry 93 96 98 Oxygen Delivery Me thod Room Air Room Air Room Air DS: Data Data Completed and Pending Labs on day of discharge: Labs from last 24 hours 10/27/23 10/26/23 06:24 21:48 WBC 6.44 RBC 3.08 L Hgb 9.6 L 9.5 L Hct 30.3 L MCV 98 MCH 31 MCHC 32 RDW Coeff of [place] 14.1 Plt Count 196 Neut % (Auto) 76.7 H Lymph % (Auto) 12.4 L [place] % (Auto) 7.5 Eos % (Auto) 2.3 Baso % (Auto) 0.6 Neut # (Auto) 4.90 Lymph # (Auto) 0.80 L [place] # (Auto) 0.50 Eos # (Auto) 0.15 Baso # (Auto) 0.04 Abs Immat Gran (auto) 0.03 Imm/Tot Granulo (auto) 0.5 Sodium 140 Potassium 4.0 Chloride 110 Carbon Dioxide 26 Anion Gap 4 L BUN 37 H Creatinine 1.5 Estimated Creat Clear 47.95 Estimated GFR 48 Glucose 127 H Calcium 9.4 Total Bilirubin 0.7 AST 25 ALT 28 Alkaline Phosphatase 70 Total Protein 7.2 Albumin 4.1 Discharge Plan Discharge Disposition: Home, Self-Care Date of Admission: 10/25/23 16:53 Attending Provider on Discharge: Tamara Alfaro Primary Care Provider: David Ely Condition: Improved Anticipated Discharge Date/Time: 10/27/23 12:13 Discharge Medications: New acetaminophen 325 mg Tablet 975 mg PO Q6H PRNQty: 30 0RF Continued gabapentin 300 mg capsule 300 mg PO DAILY mirtazapine 30 mg tablet 30 mg PO HS allopurinol 300 mg tablet 300 mg PO DAILY nitroglycerin 0.4 mg tablet, sublingual 0.4 mg sublingual Q5M PRN Rx Instructions: do not exceed 3 doses per episode zolpidem 10 mg tablet 10 mg PO QHS PRN (Reason: insomnia) Qty: 90 1RF glimepiride 2 mg tablet 2 mg PO QAM Qty: 30 1RF Rx Instructions: administer with breakfast Discontinued naproxen 500 mg tablet 500 mg PO BID PRN amlodipine 5 mg tablet 5 mg PO DAILY losartan-hydrochlorothiazide 100-25 mg tablet 1 tab PO DAILY No Action (DME) blood-glucose meter Kit See Rx Instructions .Route Qty: 1 2RF Rx Instructions: Test once a day (DME) lancets Misc See Rx Instructions .Route Qty: 100 3RF Rx Instructions: Test once a day (DME) Test Strips Misc See Rx Instructions .Route Qty: 1 4RF Rx Instructions: Test once a day Discharge Orders: Discharge Order (Routine); Ordered 10/27/23 Ordered By: Tamara Alfaro Patient Education: Acetaminophen (By mouth), Gastrointestinal Bleeding (DC) Additional Instructions: STOP all of your blood pressure medications. Check your blood pressure at home once/day and bring these readings to your next appointment with Dr. Ely. If you have any recurrence of lightheadedness, dizziness, or bleeding, you must return to ER (here or [facility]). NO Ibuprofen or Naproxen. You can try TOPICAL Voltaren cream (buy this over the counter) for your back twice/day, and Tylenol is safe to take as well. Dr. Dunbar is aware of your back, he will either be letting us know a plan for you, or call you directly to set up appointment. If you haven't heard anything by Tuesday, 10/31, call the [facility] at [phone] Activity Detail: No fishing by yourself for a few weeks. Monitor for any signs or symptoms of dizziness. Discharge Diet: Regular Diet Detail: Stay hydrated! Follow Up Appointments: David Ely MD [Primary Care Provider] - 11/01/23 11:45 am (First appointment is for labs - CBC & BMP. Second appointment is with Dr. Ely November 02, 2023 @8:00am for follow-up.) Forms: [email or web address] Info Instructions
--- NOTE | 2023-10-27 15:25 | PC.NURSE ---
Discharge ? Pt alert, oriented, cooperative, and talkative. Up independently in room. Tolerating RA, regular diet and fluids. Family at bedside. RN observed pt BM to be dark/black with no free blood noted in water. This appears to be consistent with pre-hospital status as reported by pt. aware, notified of most recent BM characteristics. Discharge education provided with understanding verbalized by pt.?IV removed, catheter intact. Pt discharged to home with spouse via wheelchair at approximately 1500.
== END 2023-10-27 15:00 | disposition home or self-care (01) ==
LOC: ED 16:39 → MEDSURG 16:53
PROVIDERS: Family Medicine; Admitting Provider Family Medicine; Emergency Provider Emergency Medicine; PCP Family Medicine; Visit Provider Family Medicine
DX: K92.1 Melena (principal); D62 Acute posthemorrhagic anemia; M54.16 Radiculopathy, lumbar region; I95.1 Orthostatic hypotension; N20.9 Urinary calculus, unspecified; I10 Essential (primary) hypertension; D12.6 Benign neoplasm of colon, unspecified; E11.9 Type 2 diabetes mellitus without complications; K63.89 Other specified diseases of intestine; M25.551 Pain in right hip; R79.89 Other specified abnormal findings of blood chemistry; N28.1 Cyst of kidney, acquired; N17.9 Acute kidney failure, unspecified; M47.895 Other spondylosis, thoracolumbar region; I25.10 Atherosclerotic heart disease of native coronary artery without angina pectoris; E78.2 Mixed hyperlipidemia; F41.1 Generalized anxiety disorder; G25.81 Restless legs syndrome; G47.00 Insomnia, unspecified; M10.9 Gout, unspecified; K86.89 Other specified diseases of pancreas; Z79.84 Long term (current) use of oral hypoglycemic drugs; I25.2 Old myocardial infarction; Z90.49 Acquired absence of other specified parts of digestive tract; Z90.89 Acquired absence of other organs; Z86.59 Personal history of other mental and behavioral disorders; Z87.442 Personal history of urinary calculi; Z86.010 Personal history of colon polyps; Z87.19 Personal history of other diseases of the digestive system; Z85.828 Personal history of other malignant neoplasm of skin; Z86.39 Personal history of other endocrine, nutritional and metabolic disease; Z98.890 Other specified postprocedural states
CPT/HCPCS: 00731; 36415; 74174; 80048; 80053; 80076; 81001; 82270; 82803; 82962; 83540; 83550; 83605; 83735; 83880; 84443; 84484; 85018; 85025; 85610; 86850; 86900; 86901; 87081; 88305; 93005; 94761; 96361; 96374; 96375; 96376; 99140; 99284; 99285; G0378; A9270; C9113; J2704; J7030; Q9967

== ENCOUNTER 2023-11-01 13:05 | Outpatient (CLI) | payer MEDICARE, BC, SELFPAY | END 2023-11-01 13:06 | disposition home or self-care (01) | PROVIDERS: PCP Family Medicine; Visit Provider Family Medicine | DX: K92.1 Melena (principal); I10 Essential (primary) hypertension | CPT/HCPCS: 80048; 85025 ==

== ENCOUNTER 2023-11-08 07:20 | Outpatient (CLI) | payer MEDICARE, BC, SELFPAY | END 2023-11-08 07:21 | disposition home or self-care (01) | LOC: RAD 07:21 → INJ CL 07:21 | PROVIDERS: PCP Family Medicine; Visit Provider Family Medicine | DX: M54.16 Radiculopathy, lumbar region (principal); M51.36 Other intervertebral disc degeneration, lumbar region | CPT/HCPCS: 62323; J0702; Q9966 ==

== ENCOUNTER 2023-11-29 09:00 | Outpatient (CLI) | payer MEDICARE, BC, SELFPAY | END 2023-11-29 09:01 | disposition home or self-care (01) | PROVIDERS: PCP Family Medicine; Visit Provider Family Medicine | DX: E78.2 Mixed hyperlipidemia (principal); I10 Essential (primary) hypertension; E11.9 Type 2 diabetes mellitus without complications; I20.0 Unstable angina | CPT/HCPCS: 80048; 85025 ==

== ENCOUNTER 2024-09-13 12:47 | Outpatient (CLI) | payer MEDICARE, BC, SELFPAY | END 2024-09-13 12:48 | disposition home or self-care (01) | LOC: FBOREF 12:49 | PROVIDERS: PCP Family Medicine; Visit Provider Family Medicine | DX: E78.2 Mixed hyperlipidemia (principal); I10 Essential (primary) hypertension | CPT/HCPCS: 80048; 80061; 84460 ==

== ENCOUNTER 2024-10-25 11:25 | Outpatient (CLI) | payer MEDICARE, BC, SELFPAY | END 2024-10-25 11:26 | disposition home or self-care (01) | LOC: FBOREF 11:26 | PROVIDERS: PCP Family Medicine; Visit Provider Family Medicine | DX: Z12.5 Encounter for screening for malignant neoplasm of prostate (principal) | CPT/HCPCS: G0103 ==

== ENCOUNTER 2025-05-09 07:56 | Outpatient (CLI) | payer MEDICARE, BC, SELFPAY | END 2025-05-09 07:57 | disposition home or self-care (01) | LOC: FBOREF 07:56 | PROVIDERS: PCP Family Medicine; Visit Provider Family Medicine | DX: E11.9 Type 2 diabetes mellitus without complications (principal) | CPT/HCPCS: 82043; 82570 ==